=== PATIENT | female | born 2000 | race American Indian/Alaskan Native ===

== ENCOUNTER 2020-02-18 16:51 | Emergency (ER) | payer SELFPAY ==
--- NOTE | 2020-02-18 17:02 | Event Note ---
ED Screening Note ED Screening Note: right flank pain that began 01/21/2020 states it began getting worse in the last few days +dysuria +dark urine +odor urine +vaginal discharge no fever no n/v no diarrhea PMHx none no allergies to meds LNMP: october HR 140 This initial assessment/diagnostic orders/clinical plan/treatment(s) is/are subject to change based on patients health status, clinical progression and re- assessment by fellow clinical providers in the ED. Further treatment and workup at subsequent clinical providers discretion. Patient/guardian urged not to elope from the ED as their condition may be serious if not clinically assessed and managed. Initial orders include: sepsis orders initiated
[2020-02-18] MEDS ORDERED: SODIUM CHLORIDE 0.9% 1000 ML IV SOLN IV ONE (17:03)
[2020-02-18] MEDS ORDERED: ACETAMINOPHEN 325 MG TAB PO ONE (17:04)
[2020-02-18 17:49] LABS: Basophils % (Auto) 0.2 % (0.0-1.8); Eosinophils # (Auto) 0.1 K/mm3 (0.0-0.4); Hemoglobin 11.1 gm/dl (10.1-14.3); Lymphocytes # (Auto) 1.5 K/mm3 (1.2-5.4); Lymphocytes % (Auto) 18.9 % (13.4-35.0); Mean Corpuscular HGB Conc 34 % (30-34); Mean Corpuscular Volume 86 fl (79-97); Monocytes # (Auto) 0.7 K/mm3 (0.0-0.8); Monocytes % (Auto) 8.9 % (0.0-7.3); Platelet Count 243 K/mm3 (140-440); Red Blood Count 3.83 M/mm3 (3.65-5.03); Red Cell Distribution Width 14.1 % (13.2-15.2)
[2020-02-18 18:03] LABS: Alanine Aminotransferase 10 units/L (7-56); Blood Urea Nitrogen 4 mg/dL (7-17); Calcium 9.2 mg/dL (8.4-10.2); Hemolysis Index 2
[2020-02-18] MEDS ORDERED: AZITHROMYCIN 250 MG TAB PO ONE (18:09)
[2020-02-18] MEDS ORDERED: cefTRIAXone/NS 1 GM/50 ML 1 GM/50 ML BAG IV ONE (18:09)
[2020-02-18 18:13] LABS: BUN/Creatinine Ratio 8
--- NOTE | 2020-02-18 18:18 | Emergency Department Report ---
ED Abdominal Pain HPI - General Chief Complaint: Abdominal Pain Stated Complaint: BACK PAIN, ABD PAIN CRAMPS Time Seen by Provider: 02/18/20 17:01 Source: patient Mode of arrival: Ambulatory Limitations: No Limitations - History of Present Illness Initial Comments: Patient is a 19-year-old female who presents for right flank pain radiating suprapubic. For 1 month. Patient states last menstrual cycle was November 11, 2019, she states not sure she is . There has been no fevers no chills. There is vaginal discharge white-yellow thick malodorous and itching. There is no fever or chills, pt is tolerating po intake without vomiting. There is intermittent nausea. There is urinary frequency and urgency, pt denies hx. symptoms are exacerbarted by movement. symptoms are relieved by nothing tried. MD Complaint: abdominal pain, flank pain Onset/Timin -: month(s) Location: suprapubic, R flank Radiation: suprapubic Migration to: suprapubic Severity: moderate Severity scale (0 -10): 9 Quality: cramping, aching Consistency: constant Improves With: nothing Worsens With: movement Associated Symptoms: nausea, dysuria. denies: vomiting, diarrhea, fever, chills, constipation, anorexia, syncope - Related Data Home Medications Medication Instructions Recorded Confirmed Last Taken Sertraline [Zoloft] 100 mg PO QDAY 10/11/14 10/11/14 10/10/14 22:00 Previous Rx's Medication Instructions Recorded Last Taken Type Acetaminophen [Mapap] 650 mg PO Q6HR PRN #30 tablet 02/18/20 Unknown Rx Clindamycin [Clindamycin CAP] 300 mg PO Q8H 10 Days #30 cap 02/18/20 Unknown Rx Allergies Allergy/AdvReac Type Severity Reaction Status Date / Time No Known Allergies Allergy Verified 02/18/20 16:52 ED Review of Systems ROS: Stated complaint: BACK PAIN, ABD PAIN CRAMPS Other details as noted in HPI Constitutional: denies: chills, fever Eyes: denies: eye pain, eye discharge, vision change ENT: denies: ear pain, throat pain Respiratory: denies: cough, shortness of breath, wheezing Cardiovascular: denies: chest pain, palpitations Endocrine: no symptoms reported Gastrointestinal: abdominal pain, nausea Genitourinary: urgency, dysuria, frequency, discharge. denies: hematuria Musculoskeletal: back pain Skin: denies: rash, lesions Neurological: headache Psychiatric: denies: anxiety, depression Hematological/Lymphatic: denies: easy bleeding, easy bruising ED Past Medical Hx - Past Medical History Hx Hypertension: No Hx Congestive Heart Failure: No Hx Diabetes: No Hx Deep Vein Thrombosis: No Hx Renal Disease: No Hx Sickle Cell Disease: No Hx Seizures: No Hx Psychiatric Treatment: Yes (DEPRESSION) Hx Asthma: No Hx COPD: No Hx HIV: No - Social History Smoking Status: Never Smoker Substance Use Type: None - Medications Home Medications: Home Medications Medication Instructions Recorded Confirmed Last Taken Type Sertraline [Zoloft] 100 mg PO QDAY 10/11/14 10/11/14 10/10/14 22:00 History Acetaminophen [Mapap] 650 mg PO Q6HR PRN #30 tablet 02/18/20 Unknown Rx Clindamycin [Clindamycin CAP] 300 mg PO Q8H 10 Days #30 cap 02/18/20 Unknown Rx ED Physical Exam - General Limitations: No Limitations General appearance: alert, in no apparent distress - Head Head exam: Present: atraumatic, normocephalic - Eye Eye exam: Present: normal appearance - ENT ENT exam: Present: mucous membranes moist - Neck Neck exam: Present: normal inspection, full ROM. Absent: tenderness - Respiratory Respiratory exam: Present: normal lung sounds bilaterally. Absent: respiratory distress, wheezes, stridor, chest wall tenderness - Cardiovascular Cardiovascular Exam: Present: normal rhythm, tachycardia, normal heart sounds. Absent: systolic murmur, diastolic murmur, rubs, gallop - GI/Abdominal GI/Abdominal exam: Present: soft, tenderness (right flank ), normal bowel sounds. Absent: distended, guarding, rebound, rigid, bruit, hernia - Rectal Rectal exam: Present: deferred - Extremities Exam Extremities exam: Present: normal inspection, full ROM, normal capillary refill. Absent: tenderness - Back Exam Back exam: Present: normal inspection, full ROM. Absent: tenderness, CVA tenderness (R), CVA tenderness (L) - Neurological Exam Neurological exam: Present: alert, oriented X3, CN II-XII intact, normal gait - Psychiatric Psychiatric exam: Present: normal affect, normal mood - Skin Skin exam: Present: warm, dry, intact, normal color. Absent: rash ED Course Vital Signs 12/23/20 12/23/20 16:53 17:40 Temperature 99.6 F Pulse Rate 140 H Respiratory 18 18 Rate Blood Pressure 105/51 ED Medical Decision Making - Lab Data Result diagrams: 02/18/20 17:25 02/18/20 17:25 Labs 02/18/20 02/18/20 02/18/20 17:25 17:25 17:25 WBC 8.1 RBC 3.83 Hgb 11.1 Hct 33.0 MCV 86 MCH 29 MCHC 34 RDW 14.1 Plt Count 243 Lymph % (Auto) 18.9 [place] % (Auto) 8.9 H Eos % (Auto) 1.0 Baso % (Auto) 0.2 Lymph # (Auto) 1.5 [place] # (Auto) 0.7 Eos # (Auto) 0.1 Baso # (Auto) 0.0 Seg Neutrophils % 71.0 H Seg Neutrophils # 5.7 Sodium 136 L Potassium 3.0 L Chloride 101.1 Carbon Dioxide 25 Anion Gap 13 BUN 4 L Creatinine 0.5 L Estimated GFR > 60 BUN/Creatinine Ratio 8 Glucose 74 Lactic Acid 2.20 H* Calcium 9.2 Total Bilirubin 0.20 AST 16 ALT 10 Alkaline Phosphatase 49 Total Protein 7.1 Albumin 4.0 Albumin/Globulin Ratio 1.3 HCG, Qual HCG, Quant Blood Type 02/18/20 02/18/20 02/18/20 17:25 17:25 19:15 WBC RBC Hgb Hct MCV MCH MCHC RDW Plt Count Lymph % (Auto) Union % (Auto) Eos % (Auto) Baso % (Auto) Lymph # (Auto) [place] # (Auto) Eos # (Auto) Baso # (Auto) Seg Neutrophils % Seg Neutrophils # Sodium Potassium Chloride Carbon Dioxide Anion Gap BUN Creatinine Estimated GFR BUN/Creatinine Ratio Glucose Lactic Acid 1.20 Calcium Total Bilirubin AST ALT Alkaline Phosphatase Total Protein Albumin Albumin/Globulin Ratio HCG, Qual Positive HCG, Quant [id number] H Blood Type 02/18/20 Unknown WBC RBC Hgb Hct MCV MCH MCHC RDW Plt Count Lymph % (Auto) [place] % (Auto) Eos % (Auto) Baso % (Auto) Lymph # (Auto) [place] # (Auto) Eos # (Auto) Baso # (Auto) Seg Neutrophils % Seg Neutrophils # Sodium Potassium Chloride Carbon Dioxide Anion Gap BUN Creatinine Estimated GFR BUN/Creatinine Ratio Glucose Lactic Acid Calcium Total Bilirubin AST ALT Alkaline Phosphatase Total Protein Albumin Albumin/Globulin Ratio HCG, Qual HCG, Quant Blood Type O POSITIVE Wet Prep: >20% Clue Cells, Rare Trichomonas, GC/Ch pending, - EKG Data EKG shows normal: sinus rhythm Rate: tachycardia - EKG Data When compared to previous EKG there are: previous EKG unavailable (no previous EKG on record) Interpretation: nonspecific ST-T wave genesis, other (Sinus Tach, NSTEMI, interp by ed attending ) - Radiology Data Radiology results: report reviewed, image reviewed Findings Reporting MD: Gm Bello Dictation Time: February 18, 2020 18:16 Curriculum Assistant: Not available Soda Clerk Date: ULTRASOUND OBSTETRIC INDICATION / CLINICAL INFORMATION: , pain. TECHNIQUE: Transabdominal. COMPARISON: None available. FINDINGS: GESTATIONAL SAC: Well-defined oval shape and intrauterine in location. YOLK SAC: No significant abnormality. EMBRYO/FETUS: No significant abnormality. - [place]-Rump Length = date 0.1 cm = 14 weeks, 0 day(s). - Heart Rate, beats per minute (if present) = 149 ADNEXA: No significant abnormality. FREE FLUID: None. ADDITIONAL FINDINGS: None. IMPRESSION: 1. Single, living intrauterine with estimated sonographic age of 14 weeks, 0 day(s). Signer Name: Gm Bello MD Signed: 02/18/2020 6:16 PM Workstation Name: [id number] - Medical Decision Making US OB 14 weeks 3 days FHR 149 BPM , wet prep: pos clue, Trich, pt tx for STI , po azithromycin, Rocephin, will dc to home with rx for Flagyl Vag Gel, and clindamycin po , pt will follow up with OBGYN in 2-3 days, Dr. Lim, pt verbalized agreement and understanding of discharge plan. pt dc'd to home in stable condition at this time. Critical care attestation.: If time is entered above; I have spent that time in minutes in the direct care of this critically ill patient, excluding procedure time. ED Disposition Clinical Impression: PID (acute pelvic inflammatory disease) Qualifiers: Weeks of gestation: 14 weeks Qualified Code(s): Z3A.14 - 14 weeks gestation of Disposition: DC-01 TO HOME OR SELFCARE Is pt being admited?: No Does the pt Need Aspirin: No Condition: Stable Instructions: Abdominal Pain (ED), and Sex, Pelvic Inflammatory Disease, [id number] Prescriptions: Clindamycin [Clindamycin CAP] 300 mg PO Q8H 10 Days #30 cap Acetaminophen [Mapap] 650 mg PO Q6HR PRN #30 tablet PRN Reason: pain Referrals: TG LIM MD [Staff Physician] - 3-5 Days Forms: Work/School Release Form(ED) Time of Disposition: 22:11
--- NOTE | 2020-02-18 19:21 | Ultrasound Report ---
ULTRASOUND OBSTETRIC INDICATION / CLINICAL INFORMATION: , pain. TECHNIQUE: Transabdominal. COMPARISON: None available. FINDINGS: GESTATIONAL SAC: Well-defined oval shape and intrauterine in location. YOLK SAC: No significant abnormality. EMBRYO/FETUS: No significant abnormality. - [place]-Rump Length = date 0.1 cm = 14 weeks, 0 day(s). - Heart Rate, beats per minute (if present) = 149 ADNEXA: No significant abnormality. FREE FLUID: None. ADDITIONAL FINDINGS: None. IMPRESSION: 1. Single, living intrauterine with estimated sonographic age of 14 weeks, 0 day(s). Signer Name: Gm Bello MD Signed: 02/18/2020 7:16 PM Workstation Name: [id number]
[2020-02-18 23:18] VITALS: BP 100/59
== END 2020-02-18 23:17 | disposition home or self-care (01) ==
LOC: ED 16:51
DX: O23.591 Infection of other part of genital tract in pregnancy, first trimester (principal); Z3A.14 14 weeks gestation of pregnancy; F32.9 Major depressive disorder, single episode, unspecified; Z79.899 Other long term (current) drug therapy
CPT/HCPCS: 36415; 76801; 80053; 82140; 84702; 84703; 85025; 86900; 86901; 87040; 87210; 87591; 93005; 96365; 99284; J0696; J7030

== ENCOUNTER 2020-05-24 17:23 | Emergency (ER) | payer SELFPAY | END 2020-05-24 18:00 | disposition left against medical advice (07) | LOC: ED 17:23 ==

== ENCOUNTER 2020-06-09 09:01 | Outpatient (CLI) | payer OTHER ==
[2020-06-09 10:52] LABS: Amphetamine Screen,Urine Negative; Benzodiazepines Screen,Urine Negative; Cocaine Screen,Urine Negative; Methadone Screen,Urine Negative; Opiate Screen,Urine Negative
[2020-06-09 10:59] LABS: Bilirubin,Urine NEG (Negative); Blood,Urine SM (Negative); Color,Urine Yellow (Yellow); Mucus,Urine 2+ /HPF; Urobilinogen,Urine < 2.0 mg/dL (<2.0); WBC,Urine > 182.0 /HPF (0.0-6.0)
[2020-06-09 11:07] LABS: Cannabinoid Screen,Urine Positive
[2020-06-09 12:35] VITALS: BP 111/64
[2020-06-09] MEDS ORDERED: ceFAZolin/Water 2 GM/20 ML 2 GM/20 ML SYRINGE IV SCH (13:00)
--- NOTE | 2020-06-09 13:36 | Ultrasound Report ---
OB ULTRASOUND >= 14 WEEKS FETUS INDICATION: WELL BEING. NO CARE COMPARISON: 02/18/2020 FINDINGS: A single gestation intrauterine is present with cephalic presentation. The placenta is ante rior, grade 1 and free of the cervical os. heart tones measure 134 bpm. Amniotic fluid volume is normal with a fluid index of 12.3. The intracranial structures, spine, four-chamber heart, diaphragm, umbilical cord, cord inserti on, stomach, kidneys, and bladder show no sonographic abnormality. Biparietal diameter is 7.4 cm which equals 29 weeks 4 days. Head circumference is 28.1 cm which equals 30 weeks 6 days. Abdominal circumference is 26.4 cm which equals 30 weeks 3 days. Femur length is 5.8 cm which equals 30 weeks 2 days. Overall estimated sonographic age is 30 weeks 2 days. EDC: 08/16/2020. HC/AC ratio: 1.1 Cephalic index: 76.1 Estimated weight: 1563 g. Additional findings: Moderate right hydronephrosis is noted. IMPRESSION: Viable single intrauterine as described. Moderate right hydronephrosis. ULTRASOUND BIOPHYSICAL PROFILE INDICATION: WELL BEING. NO CARE. COMPARISON: None available. FINDINGS: heart rate is 137 beats per minute. breathing movement = 2 Gross body movement = 2 tone = 2 Qualitative amniotic fluid volume = 2 IMPRESSION: biophysical profile = 10/03 Signer Name: Maxime Rouse Jr, MD Signed: 06/09/2020 1:24 PM Workstation Name: [id number]
== END 2020-06-09 13:05 | disposition home or self-care (01) ==
LOC: TRG 09:01 → APU 09:02 → TRG 13:05
PROVIDERS: ATTEND Obstetrics & Gynecology
DX: O99.891 Other specified diseases and conditions complicating pregnancy (principal); N13.30 Unspecified hydronephrosis; O99.343 Other mental disorders complicating pregnancy, third trimester; F32.9 Major depressive disorder, single episode, unspecified; Z3A.30 30 weeks gestation of pregnancy
CPT/HCPCS: 59025; 76805; 76819; 80307; 81001; 96365; J0690

== ENCOUNTER 2020-08-14 09:37 | Inpatient (IN) | payer OTHER ==
[2020-08-14] MEDS ORDERED: TERBUTALINE 1 MG/1 ML INJ SUB-Q PRN (10:19)
[2020-08-14] MEDS ORDERED: CARBOPROST TROMETHAMINE 250 MCG/1 ML INJ IM PRN (10:19)
[2020-08-14] MEDS ORDERED: MINERAL OIL 30 ML ORAL LIQD PO PRN (10:19)
[2020-08-14] MEDS ORDERED: ePHEDrine SULFATE 50 MG/1 ML INJ IV PRN (10:19)
[2020-08-14] MEDS ORDERED: fentaNYL 100 MCG/2 ML INJ IV PRN (10:19)
[2020-08-14] MEDS ORDERED: OXYTOCIN 10 UNIT/1 ML INJ IM PRN (10:19)
[2020-08-14] MEDS ORDERED: ACETAMINOPHEN 325 MG TAB PO PRN (10:19)
[2020-08-14] MEDS ORDERED: NalbUPHINE 10 MG/1 ML INJ IV PRN (10:19)
[2020-08-14] MEDS ORDERED: miSOPROStol 200 MCG TAB PR PRN (10:19)
[2020-08-14] MEDS ORDERED: LOPERAMIDE 2 MG CAP PO PRN (10:19)
[2020-08-14] MEDS ORDERED: METHYLERGONOVINE MALEATE 0.2 MG/ML VIAL IM PRN (10:19)
[2020-08-14] MEDS ORDERED: LACTATED RINGERS 1,000 ML IV SCH (10:30)
[2020-08-14 10:34] LABS: Hematocrit 30.1 % (30.3-42.9); Hemoglobin 9.8 gm/dl (10.1-14.3); Mean Corpuscular HGB Conc 32 % (30-34); Mean Corpuscular Volume 84 fl (79-97); Platelet Count 256 K/mm3 (140-440); Red Blood Count 3.57 M/mm3 (3.65-5.03); Red Cell Distribution Width 15.7 % (13.2-15.2)
[2020-08-14] MEDS ORDERED: OXYTOCIN DRIP 30 UNITS/500 ML BAG IV SCH ×2 (11:00)
[2020-08-14] MEDS ORDERED: AMPICILLIN/NS 2 GM/100 ML 2 GM/100 ML BAG IV ONE (11:00)
[2020-08-14] MEDS ORDERED: LIDOCAINE (2%) 20 MG/1 ML VIAL 20 ML MDV INFILTRATI ONE (11:00)
[2020-08-14] MEDS ORDERED: LANOLIN/ZINC/DIMETHICONE (LANSINOH) 7 GM TP PRN (11:24)
[2020-08-14] MEDS ORDERED: diphenhydrAMINE 25 MG CAP PO PRN (11:24)
[2020-08-14] MEDS ORDERED: ONDANSETRON 4 MG/2 ML INJ IV PRN (11:24)
[2020-08-14] MEDS ORDERED: PROMETHAZINE 25 MG RECT SUPP PR PRN (11:24)
[2020-08-14] MEDS ORDERED: PROMETHAZINE 25 MG TAB PO PRN (11:24)
[2020-08-14] MEDS ORDERED: MAGNESIUM HYDROXIDE (MOM) ORAL LIQD UDC PO PRN (11:24)
[2020-08-14] MEDS ORDERED: WITCH HAZEL/ GLYCERIN PAD TP PRN (11:24)
--- NOTE | 2020-08-14 11:37 | History and Physical Report ---
History of Present Illness Date of examination: 08/14/20 Date of admission: 08/14/20 10:19 Chief complaint: active labor SROM Past History - Obstetrical History Expected Date of Delivery: 08/16/20 Actual Gestation: 39 Week(s) 6 Day(s) : 2 Medications and Allergies Allergies Allergy/AdvReac Type Severity Reaction Status Date / Time No Known Allergies Allergy Verified 02/18/20 16:52 Home Medications Medication Instructions Recorded Confirmed Last Taken Type No Known Home Medications [No 08/14/20 08/14/20 Unknown History Reported Home Medications] Active Meds: Active Medications Acetaminophen (Acetaminophen 325 Mg Tab) 650 mg PO Q4H PRN PRN Reason: Pain, Mild (1-3) Hydrocodone Bitart/Acetaminophen (Hydrocodone/Acetaminophen 5-325 Mg Tab) 2 each PO Q6H PRN PRN Reason: Pain, Moderate (4-6) Bisacodyl (Bisacodyl 10 Mg Rect Supp) 10 mg ME BID PRN PRN Reason: Constipation Carboprost Tromethamine (Carboprost Tromethamine 250 Mcg/1 Ml Inj) 250 mcg IM ONCE PRN PRN Reason: Uterine Bleeding Diphenhydramine HCl (Diphenhydramine 25 Mg Cap) 25 mg PO Q6H PRN PRN Reason: Itching Ephedrine Sulfate (Ephedrine Sulfate 50 Mg/1 Ml Inj) 10 mg IV Q2M PRN PRN Reason: Hypotension Fentanyl (Fentanyl 100 Mcg/2 Ml Inj) 100 mcg IV Q2H PRN PRN Reason: Pain,Severe (7-10) LABOR PAIN Oxytocin/Sodium Chloride (Pitocin/Ns 30 Unit/500ml) 30 units in 500 mls @ 2 mls/hr IV TITR KYLE; Protocol Last Admin: 08/14/20 11:08 Dose: 165 ml/hr, 165 mls/hr Documented by: Lactated Ringer's (Lactated Ringers) 1,000 mls @ 125 mls/hr IV DIRECT KYLE Oxytocin/Sodium Chloride (Pitocin/Ns 30 Unit/500ml) 30 units in 500 mls @ 40 mls/hr IV TITR KYLE; Protocol Ampicillin Sodium (Ampicillin/Ns 2 Gm/100 Ml) 2 gm in 100 mls @ 100 mls/hr IV ONCE ONE; Protocol Stop: 08/14/20 11:59 Ibuprofen (Ibuprofen 600 Mg Tab) 600 mg PO Q6H KYLE Loperamide HCl (Loperamide 2 Mg Cap) 2 mg PO ONCE PRN PRN Reason: give with Hemabate Magnesium Hydroxide (Magnesium Hydroxide (Mom) Oral Liqd Udc) 30 ml PO HS PRN PRN Reason: Constipation Mineral Oil (Mineral Oil 30 Ml Oral Liqd) 30 ml PO QHS PRN PRN Reason: Constipation Last Admin: 08/14/20 11:00 Dose: 30 ml Documented by: Misoprostol (Misoprostol 200 Mcg Tab) 800 mcg ME ONCE PRN PRN Reason: Uterine Bleeding Multi-Ingredient Ointment (Lanolin/Zinc/Dimethicone (Lansinoh) 7 Gm) 1 applic TP PRN PRN PRN Reason: Sore Nipples Nalbuphine HCl (Nalbuphine 10 Mg/1 Ml Inj) 10 mg IV Q2H PRN PRN Reason: Pain, Moderate (4-6) Ondansetron HCl (Ondansetron 4 Mg/2 Ml Inj) 4 mg IV Q8H PRN PRN Reason: Nausea And Vomiting Oxytocin (Oxytocin 10 Unit/1 Ml Inj) 10 unit IM ONCE PRN PRN Reason: Uterine Bleeding Promethazine HCl (Promethazine 25 Mg Rect Supp) 25 mg ME Q6H PRN PRN Reason: Nausea And Vomiting Promethazine HCl (Promethazine 25 Mg Tab) 25 mg PO Q6H PRN PRN Reason: Nausea And Vomiting Sodium Chloride (Sodium Chloride 0.9% 10 Ml Flush Syringe) 10 ml IV PRN NR Terbutaline Sulfate (Terbutaline 1 Mg/1 Ml Inj) 0.25 mg SUB-Q ONCE PRN PRN Reason: Hyperstimulation/Hypertonicity [place]/Glycerin (Witch [place]/ Glycerin Pad) 1 each TP PRN PRN PRN Reason: Hemorrhoid/cleansing/soothing - Vital Signs Vital signs: Vital Signs Pulse BP Pulse Ox 81 116/86 99 08/14/20 09:52 08/14/20 09:52 08/14/20 09:52 Temp Pulse Resp BP Pulse Ox 98.1 F 69 18 140/88 100 08/14/20 09:53 08/14/20 11:32 08/14/20 09:53 08/14/20 11:32 08/14/20 11:32 Results Result Diagrams: 08/15/20 00:00 Abnormal lab results 08/14/20 Range/Units 10:20 WBC 12.1 H (4.5-11.0) K/mm3 RBC 3.57 L (3.65-5.03) M/mm3 Hgb 9.8 L (10.1-14.3) gm/dl Hct 30.1 L (30.3-42.9) % MCH 27 L (28-32) pg RDW 15.7 H (13.2-15.2) % All other labs normal. Assessment and Plan active labor SROM plan admission abx CFM expect ALEXEY Benjamin MD
--- NOTE | 2020-08-14 11:40 | Procedure Note ---
OB Delivery Note - Delivery Date of Delivery: 08/14/20 Surgeon: LIN RILEY - Vaginal Delivery position: OA Intrapartum events: precipitous labor- <3hr Delivery monitor: external FHT, external uterine Route of delivery: Delivery placenta: spontaneous Delivery cord: 3 umbilical vessels Episiotomy: none Delivery laceration: none Anesthesia: none Delivery comments: Patient pushed to deliver a viable male over an intact perineum with weight 3771gms and 8/9. Position BRINA, no nuchal cord. Spontaneous cry at delivery. Delivery of the anterior shoulder atraumatic, remainder of delivery uncomplicated. Cord clamped cut and baby handed to waiting [facility] team. Spontaneous delivery of an intact placenta with three-vessel cord. Inspection of the perineum cervix and vagina revealed no lacerations. Firm fundus, EBL. All sponge needle and instrument counts correct x2. Mom and baby stable to . Jax Riley MD
[2020-08-14] MEDS: IBUPROFEN 600 MG TAB PO SCH (15:53)
[2020-08-14] MEDS: HYDROcodone/ACETAMINOPHEN 5-325 MG TAB PO PRN (17:07)
[2020-08-15 00:19] LABS: Hematocrit 29.4 % (30.3-42.9); Hemoglobin 9.6 gm/dl (10.1-14.3)
[2020-08-15] MEDS: IBUPROFEN 600 MG TAB PO SCH ×4 (00:25→18:20)
[2020-08-15] MEDS: HYDROcodone/ACETAMINOPHEN 5-325 MG TAB PO PRN ×2 (10:33→17:00)
--- NOTE | 2020-08-15 11:47 | Progress Note ---
Assessment and Plan A: day 1 S/P . Anemia. P: Supplement with oral iron. Repeat CBC tomorrow AM. Subjective - Subjective Date of service: 08/15/20 Principal diagnosis: day 1 S/P Patient reports: appetite normal, voiding normally, pain well controlled, flatus, ambulating normally, no dizzy ambulation, no nauseated : doing well, bottle feeding Objective - Vital Signs Latest vital signs: Vital Signs Temp Pulse Resp BP BP Pulse Ox 08/15/20 09:05 98.1 F 89 18 116/75 98 08/15/20 07:12 18 08/15/20 06:12 18 08/15/20 01:25 18 08/15/20 00:33 98.8 F 77 20 107/59 99 08/15/20 00:25 18 08/14/20 20:42 98.6 F 74 18 115/65 97 08/14/20 13:25 98.6 F 65 20 130/84 100 08/14/20 12:51 97.5 F L 08/14/20 12:34 77 87 08/14/20 12:32 63 125/85 100 08/14/20 12:27 58 L 100 08/14/20 12:22 69 99 08/14/20 12:18 84 125/80 08/14/20 12:17 83 98 08/14/20 12:12 70 99 08/14/20 12:07 77 99 08/14/20 12:02 63 131/79 100 08/14/20 11:57 71 100 08/14/20 11:52 81 99 08/14/20 11:47 91 H 124/85 99 Intake and Output 08/14/20 08/15/20 08/15/20 23:59 07:59 15:59 Intake Total 720 240 Output Total 200 850 Balance 520 -610 Intake: Intake, Free Water 720 240 Output: Urine 200 850 Void 200 850 Other: Total, Output Amount 200 600 # Voids Void 1 - Exam Cardiovascular: Present: Regular rate Lungs: Present: Clear to auscultation Abdomen: Present: normal appearance, soft, normal bowel sounds. Absent: distention, tenderness, guarding, rigidity Uterus: Present: normal, firm, fundal height below umbilicus. Absent: bogginess, tenderness Extremities: Present: normal. Absent: tenderness - Labs Labs: Abnormal lab results 08/15/20 Range/Units 00:00 Hgb 9.6 L (10.1-14.3) gm/dl Hct 29.4 L (30.3-42.9) %
[2020-08-15] MEDS: FERROUS SULFATE 325 MG TAB PO SCH ×2 (12:39→22:11)
[2020-08-16] MEDS: IBUPROFEN 600 MG TAB PO SCH ×2 (00:22→05:20)
[2020-08-16] MEDS ORDERED: TETANUS,DIPH,PERTUSS(ACELL) VACCINE 0.5 ML SYRINGE IM ONE (06:00)
[2020-08-16 09:02] LABS: Basophils % (Auto) 0.2 % (0.0-1.8); Eosinophils # (Auto) 0.2 K/mm3 (0.0-0.4); Eosinophils % (Auto) 2.8 % (0.0-4.3); Hematocrit 29.8 % (30.3-42.9); Hemoglobin 9.8 gm/dl (10.1-14.3); Lymphocytes # (Auto) 1.7 K/mm3 (1.2-5.4); Lymphocytes % (Auto) 23.3 % (13.4-35.0); Mean Corpuscular HGB Conc 33 % (30-34); Mean Corpuscular Volume 85 fl (79-97); Monocytes # (Auto) 0.6 K/mm3 (0.0-0.8); Monocytes % (Auto) 7.9 % (0.0-7.3); Platelet Count 255 K/mm3 (140-440); Red Blood Count 3.51 M/mm3 (3.65-5.03); Red Cell Distribution Width 17.5 % (13.2-15.2)
[2020-08-16] MEDS: FERROUS SULFATE 325 MG TAB PO SCH (09:51)
--- NOTE | 2020-08-16 11:52 | Progress Note ---
Assessment and Plan A: PP Day#2 Asymptomatic Anemia P: Follow Routine Orders Continue PO FeSO4 as ordered Depo Provera 150mg IM x 1 dose prior to discharge D/C home today RTO in 6 Weeks Subjective - Subjective Date of service: 08/16/20 Principal diagnosis: day 1 S/P Patient reports: appetite normal, voiding normally, pain well controlled, flatus, ambulating normally : doing well, bottle feeding (and ) Objective - Vital Signs Latest vital signs: Vital Signs Temp Pulse Resp BP Pulse Ox 08/16/20 08:59 98.2 F 89 18 122/73 98 08/15/20 23:34 98.2 F 83 20 117/65 99 Intake and Output 08/15/20 08/16/20 08/16/20 22:59 06:59 14:59 Intake Total 240 360 Balance 240 360 Intake: Oral 240 360 Other: Total, Intake Amount 240 120 # Voids Void 1 1 - Exam Breasts: Present: normal Cardiovascular: Present: Regular rate Lungs: Present: Clear to auscultation, Normal air movement Abdomen: Present: normal appearance, soft, normal bowel sounds Uterus: Present: normal, firm, fundal height below umbilicus Extremities: Present: normal - Labs Labs: Abnormal lab results 08/16/20 Range/Units 08:30 RBC 3.51 L (3.65-5.03) M/mm3 Hgb 9.8 L (10.1-14.3) gm/dl Hct 29.8 L (30.3-42.9) % RDW 17.5 H (13.2-15.2) % [place] % (Auto) 7.9 H (0.0-7.3) %
--- NOTE | 2020-08-16 11:53 | Discharge Summary ---
Providers - Providers Date of Admission: 08/14/20 10:19 Date of discharge: 08/16/20 Attending physician: LIN RILEY MD Primary care physician: LIN RILEY MD Hospitalization Reason for admission: rupture of membranes Delivery: Episiotomy: none Laceration: none Other procedures: none complications: none Discharge diagnosis: IUP at term delivered [place] baby: male Condition at discharge: Good Disposition: DC-01 TO HOME OR SELFCARE Plan - Provider Discharge Summary Activity: routine, no sex for 6 weeks, no heavy lifting 4 weeks, no strenuous exercise Diet: routine Instructions: routine Additional instructions: [] Smoking cessation referral if applicable(refer to patient education folder for contact #) [] Refer to [facility]'s [facility] Booklet Call your doctor immediately for: * Fever > 100.5 * Heavy vaginal bleeding ( >1 pad per hour) * Severe persistent headache * Shortness of breath * Reddened, hot, painful area to leg or breast * Drainage or odor from incision. * Keep incision clean and dry at all times and follow doctor's instructions regarding bathing/showering - Follow up plan Follow up: LIN RILEY MD [Primary Care Provider] - 6 Weeks
[2020-08-16] MEDS ORDERED: medroxyPROGESTERone ACETATE 150 MG/ML SYRINGE IM NR (12:06)
[2020-08-16 17:49] VITALS: BP 109/67
== END 2020-08-16 17:30 | disposition home or self-care (01) | DRG 775 ==
LOC: TRG 09:37 → APU 09:38 → TRG 10:19 → LD 10:19 → UNDOADMIN 11:19 → LD 11:19 → OB 13:27
PROVIDERS: ADMIT Obstetrics & Gynecology; ATTEND Obstetrics & Gynecology
PROC: 10E0XZZ Delivery of Products of Conception, External Approach (ICD-10-PCS; principal; 2020-08-14)
DX: O62.3 Precipitate labor (principal); Z3A.39 39 weeks gestation of pregnancy; Z37.0 Single live birth; Z20.822 Contact with and (suspected) exposure to COVID-19; O90.81 Anemia of the puerperium; D64.9 Anemia, unspecified
CPT/HCPCS: 36415; 59025; 85014; 85018; 85025; 85027; 86850; 86900; 86901; 88307; 96368; G0378; J2210; J2405; J2590; U0003